=== PATIENT | male | born 1995 | race African-American/Black ===

== ENCOUNTER 2018-05-07 12:49 | Emergency (ER) | payer MEDICAID ==
[~2018-05-07] VITALS: Ht 190.5 cm; Wt 63.0 kg
[2018-05-07 12:58] VITALS: BP 122/70
[2018-05-07] MEDS ORDERED: ACETAMINOPHEN 325MG TABLET PO ONE (13:30)
== END 2018-05-07 13:52 | disposition home or self-care (01) ==
LOC: ER 12:49
DX: S10.83XA Contusion of other specified part of neck, initial encounter (principal); J45.909 Unspecified asthma, uncomplicated; F12.10 Cannabis abuse, uncomplicated; Z88.0 Allergy status to penicillin; Z88.6 Allergy status to analgesic agent; V73.6XXA Passenger on bus injured in collision with car, pick-up truck or van in traffic accident, initial encounter; Y93.89 Activity, other specified; Y92.488 Other paved roadways as the place of occurrence of the external cause
CPT/HCPCS: 99283